=== PATIENT | female | born 1980 | race Caucasian/White ===

== ENCOUNTER 2016-06-04 11:36 | Emergency (ER) | payer MEDICAID, OTHER ==
[2016-06-04] MEDS ORDERED: KETOROLAC 60 MG/2 ML VIAL IM STA (14:22)
[2016-06-04] MEDS ORDERED: KETOROLAC 30 MG/ML VIAL ONE (14:31)
== END 2016-06-04 14:47 | disposition home or self-care (01) ==
DX: M25.512 Pain in left shoulder (principal); F17.200 Nicotine dependence, unspecified, uncomplicated

== ENCOUNTER 2016-08-04 11:01 | Outpatient (CLI) | payer MEDICAID | END 2016-08-04 11:02 | disposition home or self-care (01) | DX: M50.123 Cervical disc disorder at C6-C7 level with radiculopathy (principal) ==

== ENCOUNTER 2016-08-08 16:33 | Outpatient (CLI) | payer MEDICAID | END 2016-08-08 16:34 | disposition home or self-care (01) | DX: R05 Cough (principal); F17.200 Nicotine dependence, unspecified, uncomplicated; M25.519 Pain in unspecified shoulder ==

== ENCOUNTER 2016-08-23 18:27 | Emergency (ER) | payer MEDICAID ==
[2016-08-23] MEDS ORDERED: HYDROcod/ACET 5/325 Prepack 6 PO STA (20:40)
[2016-08-23] MEDS ORDERED: HYDROcod/ACET 5/325 Prepack 6 PO ONE (20:43)
== END 2016-08-23 21:55 | disposition home or self-care (01) ==
DX: B02.9 Zoster without complications (principal); F17.200 Nicotine dependence, unspecified, uncomplicated

== ENCOUNTER 2016-08-27 11:05 | Outpatient (CLI) | payer MEDICAID | END 2016-08-27 11:06 | disposition home or self-care (01) | DX: S46.812A Strain of other muscles, fascia and tendons at shoulder and upper arm level, left arm, initial encounter (principal) ==

== ENCOUNTER 2018-04-27 14:31 | Outpatient (CLI) | payer MEDICAID ==
--- NOTE | 2018-04-27 16:00 | Ultrasound Report ---
Reason: MENORRHAGIA, ABDOMINAL PAIN, CHRONIC Procedure Date: 04/27/2018 Accession Number: [id number] Procedure: US - Pelvic w/Transvaginal CPT Code: FULL RESULT: EXAM: PELVIC ULTRASOUND EXAM DATE: 04/27/2018 03:46 PM. CLINICAL HISTORY: Menorrhagia, abdominal pain, chronic. COMPARISON: None. TECHNIQUE: Realtime transabdominal pelvic scan performed to identify the uterus and adnexa and as an overview of other pelvic structures, followed by transvaginal scan to provide greater detail of the uterus and adnexa, with static image documentation. FINDINGS: Uterus: 10.0 x 5.5 x 4.4 cm, volume 126 cc. Anteverted position. Normal overall size and echotexture. Masses: None. Endometrium: 6 mm. There is focal distortion of the distal fundal endometrium, image 6 of series 1. Possibly a small submucosal fibroid which is not well seen. Cervix: Unremarkable. Right Ovary: 2.7 x 1.7 x 2.2 cm, volume 5.3 cc. Normal echotexture and blood flow. Left Ovary: 2.7 x 2.9 x 2.5 cm, volume 10.2 cc. Normal echotexture and blood flow. Free Fluid: None. Other: None. IMPRESSION: Question poorly visualized; submucosal fundal fibroid. RADIA
--- NOTE | 2018-04-27 17:54 | Ultrasound Report ---
Reason: MENORRHAGIA, ABDOMINAL PAIN, CHRONIC Procedure Date: 04/27/2018 Accession Number: [id number] / [id number] Procedure: US - Abdomen Complete CPT Code: FULL RESULT: EXAM: ABDOMEN ULTRASOUND. EXAM DATE: 04/27/2018 02:52 PM. CLINICAL HISTORY: Generalized abdominal pain. COMPARISON: None. TECHNIQUE: Real-time scanning was performed with static images obtained. FINDINGS: Liver: The liver is diffusely echogenic in appearance suggesting fibrofatty infiltration. No suspicious lesions or masses are identified. The liver measures 16.1 cm. Main portal vein flow: Hepatopetal. Gallbladder: Surgically absent. Biliary System: Common bile duct measures 3 mm. No intrahepatic or extrahepatic ductal dilatation. Pancreas: Visualized portion is unremarkable. Kidneys: Right: 11.1 cm longitudinally. Normal. No contour-deforming mass, stones, or hydronephrosis. Left: 11.4 cm longitudinally. Normal. No contour-deforming mass, stones, or hydronephrosis. Spleen: 10.3 cm. Normal in size and echotexture. Aorta and Inferior Vena Cava: Unremarkable. Other: None. IMPRESSION: Fatty change of the liver, otherwise normal exam status post cholecystectomy. RADIA
== END 2018-04-27 14:32 | disposition home or self-care (01) ==
LOC: DI 14:31
PROVIDERS: ATTEND Nurse Practitioner
DX: N92.0 Excessive and frequent menstruation with regular cycle (principal); R10.9 Unspecified abdominal pain; G89.29 Other chronic pain; D25.0 Submucous leiomyoma of uterus; K76.0 Fatty (change of) liver, not elsewhere classified; Z90.49 Acquired absence of other specified parts of digestive tract
CPT/HCPCS: 76700; 76830; 76856

== ENCOUNTER 2018-05-11 12:58 | Outpatient (CLI) | payer MEDICAID ==
[2018-05-11 19:35] LABS: BASOPHILS % (AUTO) 0.4 %; EOSINOPHILS % (AUTO) 0.4 %; HGB - HEMOGLOBIN 12.3 g/dL (12.0-16.0); LYMPHOCYTES # (AUTO) 1.8 10^3/uL (1.5-3.5); LYMPHOCYTES % (AUTO) 24.9 %; MEAN CORPUSCULAR HEMOGLOBIN 26.5 pg (27.0-31.0); MEAN CORPUSCULAR HGB CONC 31.7 g/dL (32.0-36.0); MEAN CORPUSCULAR VOLUME 83.6 fL (81.0-99.0); MEAN PLATELET VOLUME 8.6 fL (7.9-10.8); MONOCYTES # (AUTO) 0.5 10^3/uL (0.0-1.0); MONOCYTES % (AUTO) 6.5 %; NEUTROPHILS # (AUTO) 4.9 10^3/uL (1.5-6.6); NEUTROPHILS % (AUTO) 67.8 %; PLT - PLATELET COUNT 272 10^3/uL (130-450); RED BLOOD COUNT 4.64 10^6/uL (4.20-5.40); RED CELL DISTRIBUTION WIDTH 17.1 % (12.0-15.0); WHITE BLOOD COUNT 7.2 x10^3/uL (4.8-10.8)
[2018-05-11 19:43] LABS: ALBUMIN 4.1 g/dL (3.2-5.5); ALBUMIN/GLOBULIN RATIO 1.1 (1.0-2.2); BILIRUBIN,TOTAL 0.3 mg/dL (0.2-1.0); CALCIUM 8.7 mg/dL (8.5-10.3); CREATININE 0.7 mg/dL (0.4-1.0); TOTAL PROTEIN 7.7 g/dL (6.7-8.2)
[2018-05-11 19:58] LABS: THYROID STIMULATING HORMONE 0.95 uIU/mL (0.34-5.60)
[2018-05-11 20:09] LABS: FOLATE 7.27 ng/mL (5.90 - >24.8)
== END 2018-05-11 23:59 | disposition home or self-care (01) ==
LOC: LAB.N 12:58
PROVIDERS: ATTEND Nurse Practitioner
DX: R53.83 Other fatigue (principal); E55.9 Vitamin D deficiency, unspecified; N92.0 Excessive and frequent menstruation with regular cycle
CPT/HCPCS: 36415; 80053; 82306; 82607; 82746; 84443; 85025

== ENCOUNTER 2018-06-04 18:32 | Emergency (ER) | payer MEDICAID ==
[2018-06-04 19:17] LABS: BASOPHILS % (AUTO) 0.4 %; EOSINOPHILS % (AUTO) 0.4 %; HGB - HEMOGLOBIN 12.5 g/dL (12.0-16.0); LYMPHOCYTES # (AUTO) 1.6 10^3/uL (1.5-3.5); LYMPHOCYTES % (AUTO) 24.1 %; MEAN CORPUSCULAR HEMOGLOBIN 26.1 pg (27.0-31.0); MEAN CORPUSCULAR HGB CONC 31.9 g/dL (32.0-36.0); MEAN CORPUSCULAR VOLUME 81.6 fL (81.0-99.0); MEAN PLATELET VOLUME 7.6 fL (7.9-10.8); MONOCYTES # (AUTO) 0.4 10^3/uL (0.0-1.0); NEUTROPHILS # (AUTO) 4.6 10^3/uL (1.5-6.6); NEUTROPHILS % (AUTO) 69.1 %; PLT - PLATELET COUNT 259 10^3/uL (130-450); RED CELL DISTRIBUTION WIDTH 16.5 % (12.0-15.0); WHITE BLOOD COUNT 6.7 x10^3/uL (4.8-10.8)
[2018-06-04 19:31] LABS: ACETAMINOPHEN < 10 ug/mL (10-30); ALBUMIN/GLOBULIN RATIO 1.1 (1.0-2.2); ALKALINE PHOSPHATASE 87 IU/L (42-121); ALT ALANINE AMINOTRANSFERASE 33 IU/L (10-60); AST ASPARTATE AMINOTRANSFERASE 31 IU/L (10-42); BILIRUBIN,TOTAL 0.2 mg/dL (0.2-1.0); BUN - BLOOD UREA NITROGEN 9 mg/dL (6-20); CALCIUM 8.8 mg/dL (8.5-10.3); CARBON DIOXIDE - CO2 16 mmol/L (21-32); CHLORIDE 108 mmol/L (101-111); CREATININE 0.6 mg/dL (0.4-1.0); GFR - MDRD 111 (>89); GLUCOSE 120 mg/dL (70-100); LIPASE 28 U/L (22-51); SALICYLATE < 6.0 mg/dL; SODIUM 138 mmol/L (135-145); TOTAL PROTEIN 7.7 g/dL (6.7-8.2)
[2018-06-04] MEDS ORDERED: SODIUM CHLORIDE 0.9% 1,000 ML IV ONE (19:39)
--- NOTE | 2018-06-04 19:43 | ED Physician Documentation ---
PD HPI MHE - Stated complaint Stated Complaint: POSS MED OD - Chief complaint Chief Complaint: MHE - History obtained from History obtained from: Patient, Family - History of Present Illness Primary symptom: Suicidal ideation (at 1800 toook about 25 x 150mg seroquel in a fleeting SI attempt. Also with some wine. No other drugs. Denies current SI. 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: section, Tubal ligation, Breast implants, Other - Present Medications Home Medications: Ambulatory Orders Medication Instructions Recorded Confirmed Citalopram [CeleXA] 40 mg PO DAILY 08/23/16 08/23/16 Hydrocodone/Acetaminophen 1 - 2 each PO Q6H PRN #14 tablet 08/23/16 [Hydrocodon-Acetaminophen 5-325] QUEtiapine [SEROquel] 100 mg PO QPM 08/23/16 08/23/16 Valacyclovir HCl [Valtrex] 1,000 mg PO TID 7 Days tablet 08/23/16 Valacyclovir HCl [Valtrex] 1,000 mg PO TID 7 Days tablet 08/23/16 - Allergies Allergies/Adverse Reactions: Allergies Allergy/AdvReac Type Severity Reaction Status Date / Time hydrocodone bitartrate * Allergy Itching Verified 06/04/18 18:42 [From Vicodin] - Social History Does the pt smoke?: Yes Smoking Status: Current every day smoker Does the pt drink ETOH?: No Does the pt have substance abuse?: No - Family History Family history: reports: Non contributory - Immunizations Immunizations are current?: Yes - POLST Patient has POLST: No PD ED PE NORMAL - Vitals Vital signs reviewed: Yes (tachycardic) - General General: Alert and oriented X 3, No acute distress - HEENT HEENT: PERRL, EOMI - Neck Neck: Supple, no meningeal sign, No bony TTP - Cardiac Cardiac: RRR, No murmur - Respiratory Respiratory: No respiratory distress, Clear bilaterally - Abdomen Abdomen: Non tender - Back Back: No CVA TTP, No spinal TTP - Derm Derm: Normal color, Warm and dry - Neuro Neuro: Alert and oriented X 3, Normal speech Results - Vitals Vitals: Vital Signs - 24 hr 06/05/18 06/06/18 06/06/18 15:27 06:35 12:27 Temperature 36.9 C 36.5 C 36.8 C Heart Rate 116 H 86 90 Respiratory 16 18 18 Rate Blood Pressure 115/80 105/60 120/80 O2 Saturation 96 97 99 Oxygen O2 Source Room air - EKG (time done) 1854 Rate: Rate (enter#) (130) Rhythm: Sinus tachycardia [place]: Normal Intervals: Normal [place]. No: Prolonged QT QRS: Normal Ischemia: Normal ST segments Computer interpretation: Agree with computer 2220 Rate: Rate (enter#) (125) Rhythm: Sinus tachycardia [place]: Normal Intervals: Normal [place]. No: Prolonged QT QRS: Normal Ischemia: Non specific changes Computer interpretation: Agree with computer - Labs Labs: Laboratory Tests 06/04/18 06/04/18 06/04/18 19:10 19:10 21:11 WBC 6.7 RBC 4.80 Hgb 12.5 Hct 39.1 MCV 81.6 MCH 26.1 L MCHC 31.9 L RDW 16.5 H Plt Count 259 MPV 7.6 L Neut # (Auto) 4.6 Lymph # (Auto) 1.6 [place] # (Auto) 0.4 Eos # (Auto) 0.0 Baso # (Auto) 0.0 Absolute Nucleated RBC 0.00 Nucleated RBC % 0.0 Sodium 138 Potassium 3.6 Chloride 108 Carbon Dioxide 16 L Anion Gap 14.0 H BUN 9 Creatinine 0.6 Estimated GFR (MDRD) 111 Glucose 120 H Calcium 8.8 Total Bilirubin 0.2 AST 31 ALT 33 Alkaline Phosphatase 87 Total Protein 7.7 Albumin 4.0 Globulin 3.7 Albumin/Globulin Ratio 1.1 Lipase 28 Urine Color YELLOW Urine Clarity CLEAR Urine pH 5.5 Ur Specific [place] >=1.030 H Urine Protein NEGATIVE Urine Glucose (UA) NEGATIVE Urine Ketones 15 H Urine Occult Blood NEGATIVE Urine Nitrite NEGATIVE Urine Bilirubin NEGATIVE Urine Urobilinogen 0.2 (NORMAL) Ur Leukocyte Esterase NEGATIVE Ur Microscopic Review NOT INDICATED Urine Culture Comments NOT INDICATED Urine HCG, Qual Salicylates < 6.0 Urine Opiates Screen Ur Oxycodone Screen Urine Methadone Screen Ur Propoxyphene Screen Acetaminophen < 10 L Ur Barbiturates Screen Ur Tricyclics Screen Ur Phencyclidine Scrn Ur Amphetamine Screen U Methamphetamines Scrn U Benzodiazepines Scrn Urine Cocaine Screen U Cannabinoids Screen Ethyl Alcohol 128.8 06/04/18 06/04/18 06/05/18 21:11 21:11 04:21 WBC RBC Hgb Hct MCV MCH MCHC RDW Plt Count MPV Neut # (Auto) Lymph # (Auto) [place] # (Auto) Eos # (Auto) Baso # (Auto) Absolute Nucleated RBC Nucleated RBC % Sodium Potassium Chloride Carbon Dioxide Anion Gap BUN Creatinine Estimated GFR (MDRD) Glucose Calcium Total Bilirubin AST ALT Alkaline Phosphatase Total Protein Albumin Globulin Albumin/Globulin Ratio Lipase Urine Color Urine Clarity Urine pH Ur Specific [place] >=1.030 H Urine Protein Urine Glucose (UA) Urine Ketones Urine Occult Blood Urine Nitrite Urine Bilirubin Urine Urobilinogen Ur Leukocyte Esterase Ur Microscopic Review Urine Culture Comments Urine HCG, Qual NEGATIVE Salicylates Urine Opiates Screen NEGATIVE Ur Oxycodone Screen NEGATIVE Urine Methadone Screen NEGATIVE Ur Propoxyphene Screen NEGATIVE Acetaminophen Ur Barbiturates Screen NEGATIVE Ur Tricyclics Screen POSITIVE H Ur Phencyclidine Scrn NEGATIVE Ur Amphetamine Screen NEGATIVE U Methamphetamines Scrn NEGATIVE U Benzodiazepines Scrn NEGATIVE Urine Cocaine Screen NEGATIVE U Cannabinoids Screen POSITIVE H Ethyl Alcohol < 5.0 06/06/18 07:21 WBC RBC Hgb Hct MCV MCH MCHC RDW Plt Count MPV Neut # (Auto) Lymph # (Auto) [place] # (Auto) Eos # (Auto) Baso # (Auto) Absolute Nucleated RBC Nucleated RBC % Sodium 136 Potassium 3.7 Chloride 106 Carbon Dioxide 22 Anion Gap 8.0 BUN 12 Creatinine 0.8 Estimated GFR (MDRD) 80 L Glucose 108 H Calcium 8.8 Total Bilirubin AST ALT Alkaline Phosphatase Total Protein Albumin Globulin Albumin/Globulin Ratio Lipase Urine Color Urine Clarity Urine pH Ur Specific [place] Urine Protein Urine Glucose (UA) Urine Ketones Urine Occult Blood Urine Nitrite Urine Bilirubin Urine Urobilinogen Ur Leukocyte Esterase Ur Microscopic Review Urine Culture Comments Urine HCG, Qual Salicylates Urine Opiates Screen Ur Oxycodone Screen Urine Methadone Screen Ur Propoxyphene Screen Acetaminophen Ur Barbiturates Screen Ur Tricyclics Screen Ur Phencyclidine Scrn Ur Amphetamine Screen U Methamphetamines Scrn U Benzodiazepines Scrn Urine Cocaine Screen U Cannabinoids Screen Ethyl Alcohol PD MEDICAL DECISION MAKING - ED course ED course: 38-year-old woman with intentional Seroquel overdose that could be significant. Poison control was contacted and they recommended cardiac monitoring for QT and an observation period of at least 8 hours before medical clearance. Patient says she is no longer suicidal but the Sister feels that she is still actively suicidal. She did become somewhat agitated overnight and required divided doses of lorazepam. Next next morning she was somnolent but eventually came around to pretty normal mental status and was interviewed by the social problems specialist. Given the persistent concern for active suicidal ideation and the significant attempt they deferred to the P because they felt that she would not be a good charla voluntary. The P detained her to [facility] evaluation and treatment facility. She is medically stable for psychiatric transfer and evaluation. However after discussion with the clinical staff at that facility the P told me that they felt she was still too acute and needed another night of metabolization of her medications before they could accept her and therefore the P had to do a "walk away." On the morning of June 06 she reevaluated the patient and she was accepted at [facility] ENT under the care of YVROSE Vivas and hussain were addended. Departure - Departure Disposition: 65 Psych Hosp/Unit DC/Xfer Clinical Impression: Suicidal ideation Alcoholic intoxication Qualifiers: Complication of substance-induced condition: uncomplicated Qualified Code(s): F10.920 - Alcohol use, unspecified with intoxication, uncomplicated Drug overdose Qualifiers: Encounter type: initial encounter Injury intent: intentional self-harm Qualified Code(s): T50.902A - Poisoning by unspecified drugs, medicaments and biological substances, intentional self-harm, initial encounter Condition: Stable
[2018-06-04] MEDS ORDERED: LORazepam 2 MG/ML VIAL IVP STA ×3 (21:06→22:26)
[2018-06-04 21:21] LABS: MUDS CUTOFF CONCENTRATIONS CUTOFF CONC BELOW:
[2018-06-04 21:25] LABS: BILIRUBIN,URINE NEGATIVE (NEGATIVE); GLUCOSE, URINE (UA) NEGATIVE (NEGATIVE); KETONES,URINE (UA) 15 mg/dL (NEGATIVE); LEUKOCYTE ESTERASE, URINE NEGATIVE (NEGATIVE); NITRITE,URINE NEGATIVE (NEGATIVE); OCCULT BLOOD,URINE NEGATIVE (NEGATIVE); PH,URINE 5.5 PH (5.0-7.5); PROTEIN,URINE NEGATIVE (NEGATIVE); UROBILINOGEN,URINE 0.2 (NORMAL) E.U./dL (NORMAL)
[2018-06-04 21:27] LABS: CLARITY,URINE CLEAR (CLEAR)
[2018-06-04 21:34] LABS: AMPHETAMINE SCREEN,URINE NEGATIVE (NEGATIVE); BENZODIAZEPINES SCREEN, URINE NEGATIVE (NEGATIVE); COCAINE SCREEN URINE NEGATIVE (NEGATIVE); METHADONE SCREEN, URINE NEGATIVE (NEGATIVE); METHAMPHETAMINES SCREEN, URINE NEGATIVE (NEGATIVE); OPIATE SCREEN, URINE NEGATIVE (NEGATIVE); OXYCODONE SCREEN, URINE NEGATIVE (NEGATIVE); PROPOXYPHENE SCREEN, URINE NEGATIVE (NEGATIVE); TRICYCLIC ANTIDEPRESSANT,URINE POSITIVE (NEGATIVE)
[2018-06-04 21:40] LABS: HCG UR QUAL NEGATIVE
[2018-06-04] MEDS ORDERED: LACTATED RINGERS 1,000 ML IV STA (22:26)
[2018-06-05] MEDS ORDERED: SODIUM CHLORIDE 0.9% 1,000 ML IV ONE (05:08)
--- NOTE | 2018-06-05 05:10 | ED Physician Documentation ---
ED Addendum - Addendum Addendum: 06/05/18 05:08 The patient is evaluated for initiation of telepsych and at 0500 her blood alcohol is nil but she remains "groggy" with slurred speech and short attention. Her resting pulse is 120 and she is given additional fluid and time before telepsych is started.
[2018-06-06 07:35] LABS: CALCIUM 8.8 mg/dL (8.5-10.3); CREATININE 0.8 mg/dL (0.4-1.0)
--- NOTE | 2018-06-06 07:38 | ED Physician Documentation ---
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, Breast implants, Other - Present Medications Home Medications: Ambulatory Orders Medication Instructions Recorded Confirmed Citalopram [CeleXA] 40 mg PO DAILY 08/23/16 08/23/16 QUEtiapine [SEROquel] 100 mg PO QPM 08/23/16 08/23/16 - Allergies Allergies/Adverse Reactions: Allergies Allergy/AdvReac Type Severity Reaction Status Date / Time hydrocodone bitartrate * Allergy Itching Verified 06/04/18 18:42 [From Vicodin] - Social History Does the pt smoke?: Yes Smoking Status: Current every day smoker Does the pt drink ETOH?: No Does the pt have substance abuse?: No - Immunizations Immunizations are current?: Yes - POLST Patient has POLST: No Results - Vitals Vitals: Vital Signs - 24 hr 06/06/18 06/06/18 06:35 12:27 Temperature 36.5 C 36.8 C Heart Rate 86 90 Respiratory 18 18 Rate Blood Pressure 105/60 120/80 O2 Saturation 97 99 Oxygen O2 Source Room air - EKG (time done) 1026 Rate: Rate (enter#) (82) Rhythm: NSR Intervals: No: Wide QRS (borderline RBBB pattern) Ischemia: Non specific changes (inv T III V3 V4 and flat elsewhere borderline QRS at 120, nl QT) - Labs Labs: Laboratory Tests 06/04/18 06/04/18 06/04/18 19:10 19:10 21:11 WBC 6.7 RBC 4.80 Hgb 12.5 Hct 39.1 MCV 81.6 MCH 26.1 L MCHC 31.9 L RDW 16.5 H Plt Count 259 MPV 7.6 L Neut # (Auto) 4.6 Lymph # (Auto) 1.6 [place] # (Auto) 0.4 Eos # (Auto) 0.0 Baso # (Auto) 0.0 Absolute Nucleated RBC 0.00 Nucleated RBC % 0.0 Sodium 138 Potassium 3.6 Chloride 108 Carbon Dioxide 16 L Anion Gap 14.0 H BUN 9 Creatinine 0.6 Estimated GFR (MDRD) 111 Glucose 120 H Calcium 8.8 Total Bilirubin 0.2 AST 31 ALT 33 Alkaline Phosphatase 87 Total Protein 7.7 Albumin 4.0 Globulin 3.7 Albumin/Globulin Ratio 1.1 Lipase 28 Urine Color YELLOW Urine Clarity CLEAR Urine pH 5.5 Ur Specific [place] >=1.030 H Urine Protein NEGATIVE Urine Glucose (UA) NEGATIVE Urine Ketones 15 H Urine Occult Blood NEGATIVE Urine Nitrite NEGATIVE Urine Bilirubin NEGATIVE Urine Urobilinogen 0.2 (NORMAL) Ur Leukocyte Esterase NEGATIVE Ur Microscopic Review NOT INDICATED Urine Culture Comments NOT INDICATED Urine HCG, Qual Salicylates < 6.0 Urine Opiates Screen Ur Oxycodone Screen Urine Methadone Screen Ur Propoxyphene Screen Acetaminophen < 10 L Ur Barbiturates Screen Ur Tricyclics Screen Ur Phencyclidine Scrn Ur Amphetamine Screen U Methamphetamines Scrn U Benzodiazepines Scrn Urine Cocaine Screen U Cannabinoids Screen Ethyl Alcohol 128.8 06/04/18 06/04/18 06/05/18 21:11 21:11 04:21 WBC RBC Hgb Hct MCV MCH MCHC RDW Plt Count MPV Neut # (Auto) Lymph # (Auto) [place] # (Auto) Eos # (Auto) Baso # (Auto) Absolute Nucleated RBC Nucleated RBC % Sodium Potassium Chloride Carbon Dioxide Anion Gap BUN Creatinine Estimated GFR (MDRD) Glucose Calcium Total Bilirubin AST ALT Alkaline Phosphatase Total Protein Albumin Globulin Albumin/Globulin Ratio Lipase Urine Color Urine Clarity Urine pH Ur Specific [place] >=1.030 H Urine Protein Urine Glucose (UA) Urine Ketones Urine Occult Blood Urine Nitrite Urine Bilirubin Urine Urobilinogen Ur Leukocyte Esterase Ur Microscopic Review Urine Culture Comments Urine HCG, Qual NEGATIVE Salicylates Urine Opiates Screen NEGATIVE Ur Oxycodone Screen NEGATIVE Urine Methadone Screen NEGATIVE Ur Propoxyphene Screen NEGATIVE Acetaminophen Ur Barbiturates Screen NEGATIVE Ur Tricyclics Screen POSITIVE H Ur Phencyclidine Scrn NEGATIVE Ur Amphetamine Screen NEGATIVE U Methamphetamines Scrn NEGATIVE U Benzodiazepines Scrn NEGATIVE Urine Cocaine Screen NEGATIVE U Cannabinoids Screen POSITIVE H Ethyl Alcohol < 5.0 06/06/18 07:21 WBC RBC Hgb Hct MCV MCH MCHC RDW Plt Count MPV Neut # (Auto) Lymph # (Auto) [place] # (Auto) Eos # (Auto) Baso # (Auto) Absolute Nucleated RBC Nucleated RBC % Sodium 136 Potassium 3.7 Chloride 106 Carbon Dioxide 22 Anion Gap 8.0 BUN 12 Creatinine 0.8 Estimated GFR (MDRD) 80 L Glucose 108 H Calcium 8.8 Total Bilirubin AST ALT Alkaline Phosphatase Total Protein Albumin Globulin Albumin/Globulin Ratio Lipase Urine Color Urine Clarity Urine pH Ur Specific [place] Urine Protein Urine Glucose (UA) Urine Ketones Urine Occult Blood Urine Nitrite Urine Bilirubin Urine Urobilinogen Ur Leukocyte Esterase Ur Microscopic Review Urine Culture Comments Urine HCG, Qual Salicylates Urine Opiates Screen Ur Oxycodone Screen Urine Methadone Screen Ur Propoxyphene Screen Acetaminophen Ur Barbiturates Screen Ur Tricyclics Screen Ur Phencyclidine Scrn Ur Amphetamine Screen U Methamphetamines Scrn U Benzodiazepines Scrn Urine Cocaine Screen U Cannabinoids Screen Ethyl Alcohol PD MEDICAL DECISION MAKING - ED course ED course: assumed care 7 AM per turn over from box brander: pt to ED some 36 hr ago after OD on 25 seroquel she was monitored fopr 24 hr and then medically cleared pt was felt to be invol so DCR was dispatched but no bed could be secured so DCR "did a walk away" now pt is awaiting SW and/or DCR to continue efforts to place her tachycardia has cleared her labs were notable for an anion gap acidosis - asa level was neg - rechecked BMP this AM and that had resolved - and + TCA which is likely false pos cross rxn from seroquel I went to see pt she is awake and alert states she did take seroquel to try and kill herself denies other meds or drugs did drink when i ask if she is still suicidal she shrugs and does not answer she req to go out and smoke VS noted awake alert RRR CTAB suicidal rx nicotone patch DCR walked away but pt is not safe to dc as she appears to still be actively suicidal spoke to BALDO Faustin and she will discuss with DCR how to proceed with ongoing attempts to place pt SW states possible placement to telecare E&T but need another EKG as 1st was abnbed was found so DCR re-dispatched to detain pt she was transferred for mental health care remained stable Departure - Departure Disposition: 65 Psych Hosp/Unit DC/Xfer Clinical Impression: Suicidal ideation Alcoholic intoxication Qualifiers: Complication of substance-induced condition: uncomplicated Qualified Code(s): F10.920 - Alcohol use, unspecified with intoxication, uncomplicated Drug overdose Qualifiers: Encounter type: initial encounter Injury intent: intentional self-harm Qualified Code(s): T50.902A - Poisoning by unspecified drugs, medicaments and biological substances, intentional self-harm, initial encounter Condition: Stable
[2018-06-06] MEDS ORDERED: NICOTINE 7 MG PATCH TOP SCH (09:00)
[2018-06-06] MEDS ORDERED: LORazepam 0.5 MG TABLET PO STA ×3 (09:02→15:57)
[2018-06-06 19:34] VITALS: BP 132/93
== END 2018-06-06 19:40 ==
LOC: ED 18:32
DX: T43.592A Poisoning by other antipsychotics and neuroleptics, intentional self-harm, initial encounter (principal); F10.920 Alcohol use, unspecified with intoxication, uncomplicated; R45.851 Suicidal ideations; F17.200 Nicotine dependence, unspecified, uncomplicated
CPT/HCPCS: 36415; 80048; 80053; 80306; 80307; 80320; 80329; 81003; 81025; 83690; 85025; 93005; 96361; 96374; 96376; 99284; 99285; A9270; J2060; J7120; 81001; 87086

== ENCOUNTER 2018-06-06 19:42 | Outpatient (CLI) | payer MEDICAID | END 2018-06-06 19:43 | LOC: EMS 19:42 | PROVIDERS: ATTEND Surgery | DX: R45.851 Suicidal ideations (principal) | CPT/HCPCS: A0425; A0428; A0999 ==

== ENCOUNTER 2018-07-02 11:48 | Outpatient (CLI) | payer MEDICAID ==
--- NOTE | 2018-07-04 00:19 | Ultrasound Report ---
Reason: PELVIC PAIN,CHRONIC,MENORRHAGIA Procedure Date: 07/02/2018 Accession Number: [id number] / [id number] Procedure: US - Pelvic w/Transvaginal CPT Code: FULL RESULT: EXAM: PELVIC ULTRASOUND EXAM DATE: 07/02/2018 01:07 PM. CLINICAL HISTORY: Pelvic pain, chronic, menorrhagia. COMPARISON: PELVIC W/TRANSVAGINAL 04/27/2018 3:08 PM. TECHNIQUE: Realtime transabdominal pelvic scan performed to identify the uterus and adnexa and as an overview of other pelvic structures, followed by transvaginal scan to provide greater detail of the uterus and adnexa, with static image documentation. FINDINGS: Uterus: 11 x 4.2 x 6.9 cm, volume 169 cc. Retroverted position. Normal overall size and echotexture. Masses: None. Endometrium: 9 mm. Normal. Cervix: Unremarkable. Right Ovary: 3 x 2 x 2 cm, volume 7.2 cc. Normal echotexture and blood flow. Left Ovary: Obscured by bowel gas. Free Fluid: None. Other: None. IMPRESSION: 1. Nonvisualization of left ovary due to bowel gas artifact. 2. Normal uterus and right ovary. RADIA
== END 2018-07-02 11:49 | disposition home or self-care (01) ==
LOC: DI 11:48
PROVIDERS: ATTEND Nurse Practitioner Obstetrics & Gynecology
DX: R10.2 Pelvic and perineal pain (principal); N92.0 Excessive and frequent menstruation with regular cycle
CPT/HCPCS: 76830; 76856

== ENCOUNTER 2018-07-27 07:27 | Outpatient (CLI) | payer MEDICAID ==
[2018-07-27 13:37] LABS: BASOPHILS % (AUTO) 0.3 %; EOSINOPHILS % (AUTO) 0.9 %; HGB - HEMOGLOBIN 11.6 g/dL (12.0-16.0); LYMPHOCYTES # (AUTO) 1.6 10^3/uL (1.5-3.5); LYMPHOCYTES % (AUTO) 29.7 %; MEAN CORPUSCULAR HEMOGLOBIN 24.8 pg (27.0-31.0); MEAN CORPUSCULAR HGB CONC 32.9 g/dL (32.0-36.0); MEAN CORPUSCULAR VOLUME 75.5 fL (81.0-99.0); MEAN PLATELET VOLUME 8.6 fL (7.9-10.8); MONOCYTES # (AUTO) 0.4 10^3/uL (0.0-1.0); MONOCYTES % (AUTO) 7.6 %; NEUTROPHILS # (AUTO) 3.2 10^3/uL (1.5-6.6); NEUTROPHILS % (AUTO) 61.5 %; PLT - PLATELET COUNT 348 10^3/uL (130-450); RED BLOOD COUNT 4.68 10^6/uL (4.20-5.40); RED CELL DISTRIBUTION WIDTH 16.6 % (12.0-15.0); WHITE BLOOD COUNT 5.3 x10^3/uL (4.8-10.8)
[2018-07-27 13:48] LABS: HB2 TOTAL 12.3 g/dL; HEMOGLOBIN A1C 0.47 g/dL; HEMOGLOBIN A1C % 5.6 % (4.6-6.2)
[2018-07-27 13:49] LABS: ALBUMIN 3.8 g/dL (3.2-5.5); ALBUMIN/GLOBULIN RATIO 1.2 (1.0-2.2); BILIRUBIN,TOTAL 0.4 mg/dL (0.2-1.0); CALCIUM 8.6 mg/dL (8.5-10.3); CREATININE 0.7 mg/dL (0.4-1.0); TOTAL PROTEIN 7.1 g/dL (6.7-8.2)
[2018-07-27 13:50] LABS: T4 (THYROXINE) 5.79 ug/dL (6.09-12.23)
[2018-07-27 13:53] LABS: THYROID STIMULATING HORMONE 1.43 uIU/mL (0.34-5.60)
[2018-07-27 13:58] LABS: FERRITIN 3.9 ng/mL (11.0-306.8)
== END 2018-07-27 23:59 | disposition home or self-care (01) ==
LOC: LAB.N 07:27
PROVIDERS: ATTEND Obstetrics & Gynecology
DX: N92.0 Excessive and frequent menstruation with regular cycle (principal)
CPT/HCPCS: 36415; 80053; 82728; 82947; 83036; 83540; 84436; 84443; 84466; 85025

== ENCOUNTER 2018-09-07 07:40 | Inpatient (IN) | payer MEDICAID ==
[~2018-09-07 07:40] MED LIST: GABAPENTIN 400 MG CAPSULE ONE; ceFAZolin 2 GM/50 ML 2 GM/50 ML BAG IV ONE
--- NOTE | 2018-09-07 08:00 | ANESTHESIA ---
Pre-Anesthesia VS, & Labs - Diagnosis menorrhagia - Procedure LAVH, w/bilat salpingectomy Vital Signs: Temp Pulse Resp BP Pulse Ox 36.5 C 92 18 101/72 99 09/07/18 07:45 09/07/18 07:45 09/07/18 07:45 09/07/18 07:45 09/07/18 07:45 Height 5 ft 5 in Weight (kg) 92.6 kg Body Mass Index 34.9 - NPO >8 hours - Is Patient ?: No - Lab Results Lab results reviewed: Yes Home Medications and Allergies Home Medications: Ambulatory Orders Oxcarbazepine [Trileptal] 600 mg PO BID 08/29/18 buPROPion [Wellbutrin Sr] 150 mg PO DAILY 08/29/18 Citalopram [CeleXA] 20 mg PO DAILY 08/23/16 QUEtiapine [SEROquel] 250 mg PO QPM 08/23/16 Oxcarbazepine [Trileptal] 600 mg PO BID 08/29/18 buPROPion [Wellbutrin Sr] 150 mg PO DAILY 08/29/18 Allergies/Adverse Reactions: Allergies Allergy/AdvReac Type Severity Reaction Status Date / Time hydrocodone bitartrate * Allergy Itching Verified 08/29/18 13:55 [From Vicodin] Anes History & Medical History - Anesthetic History Anesthesia Complications: reports: No previous complications Family history of Anesthesia Complications: Denies Family history of Malignant Hyperthermia: Denies - Medical History Cardiovascular: reports: None Pulmonary: reports: None Gastrointestinal: reports: None Urinary: reports: None Musculoskeletal: reports: Chronic back pain Endocrine/Autoimmune: reports: None Blood Disorders: reports: None Skin: reports: None Smoking Status: Current every day smoker Psychosocial: reports: Anxiety - Surgical History General: Cholecystectomy Gynecologic: section, Tubal ligation, Breast implants, Other Exam General: Alert, Oriented x3, Cooperative Dental: WNL Mouth Openin Fingerbreadth Neck Mobility: Normal Mallampati classification: II Thyromental Distance: 4-6 cm Respiratory: Lungs clear, Normal breath sounds Cardiovascular: Regular rate Neurological: Normal speech Mental/Cognitive Status: Alert/Oriented X3, Normal for patient Cognitive Status: Within normal limits Plan Anesthesia Type: General Consent for Procedure(s) Verified and Reviewed: Yes Code Status: Attempt Resuscitation ASA classification: 2-Mild systemic disease Is this case an emergency?: No
[2018-09-07] MEDS ORDERED: LACTATED RINGERS 1,000 ML IV ONE ×3 (08:05→13:07)
[2018-09-07] MEDS ORDERED: BUPIVACAINE 0.5%-EPI 1:200000 PF 30 ML VIAL ONE ×2 (09:15→13:56)
[2018-09-07] MEDS ORDERED: BUPIVACAINE 0.5%-EPI 1:200000 PF 30 ML VIAL SUBQ ONE ×4 (10:29→13:45)
[2018-09-07] MEDS ORDERED: KETOROLAC 30 MG/ML VIAL IVP ONE (10:30)
[2018-09-07] MEDS ORDERED: SODIUM CHLORIDE 0.9% 10 ML VIAL IV ONE (10:30)
[2018-09-07] MEDS ORDERED: ACETAMINOPHEN 1,000 MG/100 ML 100 ML IV ONE (10:30)
[2018-09-07] MEDS ORDERED: GLYCOPYRROLATE 1 MG/5 ML VIAL IVP ONE (10:30)
[2018-09-07] MEDS ORDERED: MIDAZOLAM 2 MG/2 ML VIAL IVP ONE (10:30)
[2018-09-07] MEDS ORDERED: NEOSTIGMINE 1 MG/1 ML 10 ML MDV IVP ONE (10:30)
[2018-09-07] MEDS ORDERED: DEXAMETHASONE 4 MG/ML VIAL IVP ONE (10:30)
[2018-09-07] MEDS ORDERED: HYDROmorphone 1 MG/ML CARPUJECT IVP ONE (10:30)
[2018-09-07] MEDS ORDERED: LIDOCAINE-MPF 2% 5 ML VIAL IM ONE (10:30)
[2018-09-07] MEDS ORDERED: fentaNYL 100 MCG/2 ML VIAL IVP ONE (10:30)
[2018-09-07] MEDS ORDERED: PROPOFOL 200 MG/20 ML VIAL IVP ONE (10:30)
[2018-09-07] MEDS ORDERED: ROCURONIUM 50 MG/5 ML VIAL IVP ONE ×2 (10:30→12:41)
[2018-09-07] MEDS ORDERED: ONDANSETRON 4 MG/2 ML VIAL IVP ONE (10:30)
[2018-09-07] MEDS ORDERED: HYDROmorphone 0.5 MG/0.5 ML SYRINGE ONE ×3 (14:17→14:36)
[2018-09-07] MEDS: LORazepam 2 MG/ML VIAL ONE ×2 (14:18→14:28)
[2018-09-07] MEDS ORDERED: diphenhydrAMINE INJ 50 MG/ML VIAL IVP PRN (14:22)
[2018-09-07] MEDS ORDERED: SODIUM CHLORIDE FLUSH 0.9% 10 ML SYRINGE IVP PRN (14:22)
--- NOTE | 2018-09-07 14:22 | OPERATIVE REPORT ---
Operative Report - General Procedure Date: 09/07/18 Planned Procedure: LAVH, bilat salpingectomy Pre-Op Diagnosis: CPP, AUB Procedure Performed: LSC lysis of adhesions and left salpingectomy Open supracervical hysterectomy and right salpingectomy Post Op Diagnosis: same and adhesive disease - Procedure Note Primary Surgeon: Yesenia Secondary Surgeon: Hardeep nelson Anesthesia Technique: General ET tube Pathology: uterus, bilat fallopian tubes IV Fluids (mL): 1,900 Estimated Blood Loss (mL): 200 Urine Output (mL): 250 Findings: omental adhesions bladder adhesions Complications: none
[2018-09-07] MEDS: ACETAMINOPHEN 500 MG TABLET PO SCH ×2 (15:00→22:38)
[2018-09-07] MEDS: LACTATED RINGERS 1,000 ML IV SCH ×2 (15:17→15:44)
[2018-09-07] MEDS: KETOROLAC 30 MG/ML VIAL IVP SCH ×2 (15:17→21:36)
[2018-09-07] MEDS: oxyCODONE 5 MG TABLET PO PRN ×3 (15:43→22:38)
[2018-09-07] MEDS: SODIUM CHLORIDE FLUSH 0.9% 10 ML SYRINGE IVP SCH (16:08)
[2018-09-07] MEDS: hydrOXYzine PAMOATE 25 MG CAPSULE PO PRN (17:28)
[2018-09-07] MEDS ORDERED: QUEtiapine 100 MG TABLET PO SCH (21:00)
--- NOTE | 2018-09-07 21:22 | OPERATIVE REPORT ---
DATE OF SERVICE: 09/07/2018 Physician: Yelitza Patterson MD PREOPERATIVE DIAGNOSES 1. Chronic pelvic pain. 2. Abnormal uterine bleeding. POSTOPERATIVE DIAGNOSES 1. Chronic pelvic pain. 2. Abnormal uterine bleeding. PROCEDURES: Laparoscopic left salpingectomy and lysis of adhesions, followed by abdominal supracervical hysterectomy and right salpingectomy. SURGEON: Yelitza Patterson MD BRUSHER AND SHEARER: Kolby Meier MD ANESTHESIA: General. ESTIMATED BLOOD LOSS: 200 mL IV FLUIDS: 1900 mL. URINE OUTPUT: 250 mL, clear. COUNTS: Correct x2. COMPLICATIONS: None apparent. DISPOSITION: Stable to recovery room. PROPHYLAXIS: SCDs and ELIANA hose to bilateral lower extremities. Ancef 2 grams prior to start of the case. SPECIMENS: Uterus and bilateral fallopian tubes sent to pathology. FINDINGS 1. The patient had a curtain of omental adhesions against her anterior abdominal wall, throughout the entire anterior and lateral abdominal and pelvic peritoneum. This obstructed visualization of the pelvis. 2. Normal-appearing uterus and ovaries. 3. Fallopian tubes interrupted status post tubal ligation. She also had bilateral Filshie clips identified on each fallopian tube. 4. Dense adhesions between the bladder and the lower uterine segment and cervix. COUNSELING: See H and P for counseling details. In brief, the patient declined other methods other than the hysterectomy for treatment of her pain and bleeding. She had 4 prior sections and she was counseled that the surgical approach would depend on her anatomy. We hoped for a laparoscopic- assisted vaginal hysterectomy, but she was counseled that she might require an abdominal approach or a supracervical approach depending on her anatomy. DESCRIPTION OF PROCEDURE: The patient was brought to the operating room, and she was induced with general anesthesia. She was placed in low lithotomy in [facility]. Bimanual examination revealed an axial uterus. She was prepped and draped in the usual sterile fashion. Speculum was placed and a single-tooth tenaculum was applied to the anterior lip of the cervix. The cervix was easily dilated to 5 mm. A large VCare uterine manipulator was inserted into the uterine cavity. The balloon was inflated. The tenaculum was removed and the cups of the VCare were applied flush to the cervix. The speculum was removed. A Bryson catheter was placed. I changed my gloves. All laparoscopic incisions were numbed with local prior to incising. All incisions were done with an 11 blade. All the incisions were 5 mm. Vertical incision was made in the upper umbilicus, in the area of a prior scar. The abdominal tissue was tented upward and Visiport was inserted directly into the abdominal cavity without difficulties. The pneumoperitoneum was created with 15 mmHg of CO2. The omental blanketing of the anterior abdominal wall was noted. The liver and stomach could not be visualized because of the omentum blocking the view. The uterus was visualized, as were the fallopian tubes and ovaries. A dense bladder adhesion was also noted. Two 5 mm trocars were placed approximately 2 cm inferior to and 12 cm lateral to the umbilicus on both sides. Both of the trocars had to be inserted through the peritoneum as well as the omental blanket. The laparoscopic hysterectomy was commenced. All dissection was performed with the LigaSure. The fimbriated portion of the left fallopian tube was grasped and elevated towards the patient's head. The fallopian tube was divided from the mesosalpinx and then was brought through the trocar. The round ligament on the left side was transected. The utero-ovarian ligament on the left side was transected. The anterior leaf of the broad ligament was dissected down to the level of the bladder. The posterior peritoneum was skeletonized slightly. The same procedure was initiated on the contralateral side. Unfortunately, on this side, it was much more difficult due to the position and the omentum. The tubal dissection was started, but it could not be continued due to the omental location and the blocking of the view. An additional trocar was placed to try to facilitate dissection of the omentum off of the anterior abdominal wall. Success was made in dissecting the omentum for the anterior abdominal wall using the LigaSure, especially in the patient's right side lateral to her umbilicus. However, it was clear that it would take a lot of time to dissect off the rest of the omentum, and this would dramatically increase her operative time and therefore operative risk. Also, the feasibility of performing the hysterectomy laparoscopically was uncertain due to the dense bladder adhesions. The decision was made to open a laparotomy incision. All the trocars were removed from her abdomen. Her trocar incisions were closed with interrupted sutures of 4-0 Monocryl. Dermabond was then applied. Laparotomy incision was made with a Pfannenstiel incision in the area of the patient's 4 prior section scars. A scalpel was used to bring the incision down to the fascia, which was nicked in the midline bilaterally. The fascial incision was extended laterally and slightly superiorly with Lay scissors. Kochers were placed on the inferior margin of the fascial margin, and the fascia was bluntly and sharply dissected off of the underlying rectus. The same was performed superiorly. The rectus were slightly splayed. A hemostat was used to elevate the peritoneum and this was incised, knowing that we were going to incise through omentum here as well. The incision was stretched. The uterus was identified and was elevated using Radha clamps applied to the cornua on both sides. The right fallopian tube was divided from the mesosalpinx using the LigaSure. The hysterectomy on the right side was then carried forth as it had been on the left. The hysterectomy was assisted by using the VCare manipulator, which was left in her uterus, and performing upward traction on the VCare occasionally. A double-tooth tenaculum was applied to the fundus of the uterus. The bladder area was inspected and there had been a small plane created by the laparoscopic dissection. This was further developed using Metzenbaum scissors. Blunt dissection succeeded in peeling off the dense adhesions between the bladder and the lower uterine segment. The bladder was brought down to the level of about nursing home down the cervix. Further dissection would have been much more difficult and would have increased her risk for bladder injury. Therefore, I opted to perform a supracervical hysterectomy. The uterus was amputated from the lower uterine segment. Kochers were placed on the remaining stump. The cervical dissection was performed further with a LigaSure skiving off of the specimen to develop the pedicles. The cervix was approximately 6 cm long. Once 3 cm of the cervix had been dissected away from the pelvic peritoneum the cervix was transected with a Bovie. Some bleeders were encountered laterally and these were cauterized with the LigaSure without problems. The peritoneum over the cervix was closed with a running layer of 0 Vicryl. A few areas were oversewn in order to achieve greater hemostasis. At the initial dissection, handheld retractors were used. Following the development of the bladder flap, an O'Daljit-O'Geller retractor was placed. The intestines were packed upward with moist laps. The sidewall retractors were placed and the retractor was opened. The superior blade was placed and good visualization was resulting. There was no pressure of the blade against the sacrum. The abdomen was copiously irrigated multiple times in order to ensure hemostasis. A few small bleeders over the bladder area were gently cauterized. The pedicles were observed and everything appeared to be hemostatic. The O'Daljit-O'Geller retractor was removed. All packing was removed. The rectus muscles were plicated in their scarred thickened midline edges. The fascia was closed with a running layer of 0 Vicryl. The subcutaneous tissues were irrigated and then reapproximated with a running suture of 2-0 Monocryl. The skin was closed with 4-0 Monocryl in a subcuticular fashion. The wound VAC was then applied to the Pfannenstiel incision. The Bryson catheter was removed. The blood and Betadine was washed from her body and she was returned to the supine position prior to waking. TD: 09/07/2018 19:13 PATRICA
[2018-09-07] MEDS: DOCUSATE SODIUM 100 MG CAPSULE PO SCH (21:35)
[2018-09-07] MEDS: buPROPion SR 150 MG TABLET PO SCH (21:35)
[2018-09-07] MEDS: SIMETHICONE CHEW 80 MG TABLET PO SCH (21:35)
[2018-09-07] MEDS: FAMOTIDINE 20 MG TABLET PO SCH (21:35)
[2018-09-07] MEDS: OXcarbazepine 150 MG TABLET PO SCH (21:49)
[2018-09-08] MEDS: hydrOXYzine PAMOATE 25 MG CAPSULE PO PRN ×4 (00:13→17:19)
[2018-09-08] MEDS: SODIUM CHLORIDE FLUSH 0.9% 10 ML SYRINGE IVP SCH ×3 (02:54→15:51)
[2018-09-08] MEDS: KETOROLAC 30 MG/ML VIAL IVP SCH ×2 (02:55→08:19)
[2018-09-08] MEDS: oxyCODONE 5 MG TABLET PO PRN ×4 (02:55→15:42)
[2018-09-08] MEDS: ACETAMINOPHEN 500 MG TABLET PO SCH ×2 (06:04→14:36)
[2018-09-08] MEDS: SIMETHICONE CHEW 80 MG TABLET PO SCH ×2 (06:04→12:20)
[2018-09-08] MEDS ORDERED: NICOTINE 14 MG PATCH TOP ONE (06:19)
[2018-09-08] MEDS: buPROPion SR 150 MG TABLET PO SCH (08:13)
[2018-09-08] MEDS: FAMOTIDINE 20 MG TABLET PO SCH (08:14)
[2018-09-08] MEDS: DOCUSATE SODIUM 100 MG CAPSULE PO SCH (08:14)
[2018-09-08] MEDS ORDERED: NICOTINE 14 MG PATCH TOP SCH (09:00)
[2018-09-08] MEDS ORDERED: cloNIDine 0.1 MG TABLET PO SCH (09:00)
[2018-09-08] MEDS ORDERED: CITALOPRAM HYDROBROMIDE 20 MG TABLET PO SCH (09:00)
[2018-09-08] MEDS: OXcarbazepine 150 MG TABLET PO SCH (09:04)
--- NOTE | 2018-09-08 09:19 | PROVIDER PROGRESS NOTE ---
Subjective - Subjective Subjective: /10 pain at rest, anxious, 2 panic attacks. Moving around ok. Urination is wonky, feels like she empties and stops, then has to valsalva and reposition to get more out, unsure if emptying completely or not. Scant VB. Eating OK. O: AVSS Alert, sitting in chair, appears sleepy, NAD Abd soft, appropriately tender, non-distended LSC incisions c/d/i without erythema Laparotomy incision covered with vac without surrounding erythema A/P: 38yo POD #1 s/p abd supracervical hyst, bilateral salpigectomy, preceded by LSC THANG. Pt with longstanding anx/bipolar/PTSD/panic. Hx of opioid misuse. --Add clonidine to address the panic component --Bladder scan to check to see if she is emptying or not --Reviewed discharge criteria, pt may want to go home later today, will depend on bladder. Objective - Vital Signs/Intake & Output Vital Signs: Vital Signs x48h Temp Pulse Resp BP Pulse Ox 09/08/18 07:53 98.1 F 82 20 107/63 98 Intake & Output: Intake & Output 09/05/18 09/06/18 09/07/18 09/08/18 23:59 23:59 23:59 23:59 Intake Total 4900 690 Output Total 950 1975 Balance 3950 -1285 - Lab Results Other Labs: Lab Results x24hrs 09/07/18 Range/Units 08:03 Blood Type O POSITIVE Antibody Screen NEGATIVE
[2018-09-08 15:44] VITALS: BP 108/65
--- NOTE | 2018-09-08 16:54 | Discharge Plan ---
Discharge Plan Disposition: 01 Home, Self Care Condition: Good Diet: Regular Activity Restrictions: pelvic rest and no lifting more than 10 lbs Shower Restrictions: Yes (do not let vacuum machine get wet) Driving Restrictions: Yes (not while on narcotics) Instruction Topics: Docusate capsules, Naproxen Sumatriptan tablets, Oxycodone tablets or capsules, Constipation, Closure Wound Vacuum Assisted Additional Instructions or Follow Up instructions: See Yesenia's written instructions No Smoking: If you smoke, Please STOP! Call for help. Follow-up with: Yelitza Patterson MD [Provider Admit Priv/Credential] - 1 Week
--- NOTE | 2018-09-08 18:12 | DISCHARGE SUMMARY ---
Physician: Yelitza Patterson MD DATE OF ADMISSION: 09/07/2018 DATE OF DISCHARGE: 09/08/2018 ADMISSION DIAGNOSES 1. Chronic pelvic pain. 2. Abnormal uterine bleeding. DISCHARGE DIAGNOSES 1. Chronic pelvic pain. 2. Abnormal uterine bleeding. OPERATIONS AND PROCEDURES: On 09/08/2018, a supracervical abdominal hysterectomy, bilateral salping ectomy and laparoscopic lysis of adhesions. HOSPITAL COURSE: Patient was admitted for surgical treatment of her chronic pelvic pain and abnormal periods. She has had 4 prior sections and she was aware that her operative approach would depend on her anatomy. Laparoscopic attempted hysterectomy failed due to the patient's dense adhesio ns between bladder and lower uterine segment. She also had a curtain of omentum surrounding her enti re abdominal wall that was obstructing the view of her pelvis. Postoperatively, she did very well. She had panic attacks that are common for her. Her pain was wel l controlled. She was eating, ambulating and urinating without difficulties. POSTOPERATIVE EXAM VITAL SIGNS: She is afebrile with normal vital signs. GENERAL: She is alert and smiling and in no apparent distress. ABDOMEN: Soft, appropriately tender, nondistended. Incisions clean, dry and intact without erythema or induration on the laparoscopic incisions. The laparotomy incision was covered with a wound VAC a nd there was no surrounding erythema. EXTREMITIES: Lower extremities were without abnormality. DISCHARGE DISPOSITION: Home. CONDITION: Good. FOLLOWUP: In [address] Patterson. INSTRUCTIONS: See patient's written instructions. Routine postoperative instructions were given. T he patient is aware that her cervix is in situ and Paps are still recommended. DISCHARGE MEDICATIONS 1. Resume home medications. 2. Oxycodone 5 mg, number 20, no refills. 3. Naproxen 220 mg p.o. b.i.d. p.r.n. pain. 4. Colace p.r.n. to soften stool. TD: 09/08/2018 17:05
== END 2018-09-08 17:26 | disposition home or self-care (01) | DRG 743 ==
LOC: SDS 07:40 → MS2 14:22
PROVIDERS: ADMIT Obstetrics & Gynecology; ATTEND Obstetrics & Gynecology
PROC: 0UT50ZZ Resection of Right Fallopian Tube, Open Approach (ICD-10-PCS; 2018-09-07)
PROC: 0UT64ZZ Resection of Left Fallopian Tube, Percutaneous Endoscopic Approach (ICD-10-PCS; 2018-09-07)
PROC: 0DNW4ZZ Release Peritoneum, Percutaneous Endoscopic Approach (ICD-10-PCS; 2018-09-07)
PROC: 0TNB4ZZ Release Bladder, Percutaneous Endoscopic Approach (ICD-10-PCS; 2018-09-07)
PROC: 0UT90ZZ Resection of Uterus, Open Approach (ICD-10-PCS; principal; 2018-09-07 08:45)
DX: D25.1 Intramural leiomyoma of uterus (principal); N88.8 Other specified noninflammatory disorders of cervix uteri; N99.4 Postprocedural pelvic peritoneal adhesions; N32.89 Other specified disorders of bladder; F41.0 Panic disorder [episodic paroxysmal anxiety]; F17.210 Nicotine dependence, cigarettes, uncomplicated; F31.9 Bipolar disorder, unspecified; F43.10 Post-traumatic stress disorder, unspecified; Z72.89 Other problems related to lifestyle
CPT/HCPCS: 36415; 86850; 86900; 86901; A9270; J0131; J0690; J1170; J2060; J7120; J8499

== ENCOUNTER 2018-09-11 11:13 | Emergency (ER) | payer MEDICAID ==
[2018-09-11 13:24] LABS: BASOPHILS % (AUTO) 0.3 %; EOSINOPHILS # (AUTO) 0.2 10^3/uL (0.0-0.7); EOSINOPHILS % (AUTO) 3.5 %; HGB - HEMOGLOBIN 9.5 g/dL (12.0-16.0); LYMPHOCYTES # (AUTO) 1.2 10^3/uL (1.5-3.5); LYMPHOCYTES % (AUTO) 17.8 %; MEAN CORPUSCULAR HEMOGLOBIN 24.3 pg (27.0-31.0); MEAN CORPUSCULAR HGB CONC 32.2 g/dL (32.0-36.0); MEAN CORPUSCULAR VOLUME 75.4 fL (81.0-99.0); MEAN PLATELET VOLUME 7.7 fL (7.9-10.8); MONOCYTES # (AUTO) 0.4 10^3/uL (0.0-1.0); NEUTROPHILS # (AUTO) 4.9 10^3/uL (1.5-6.6); NEUTROPHILS % (AUTO) 72.4 %; PLT - PLATELET COUNT 316 10^3/uL (130-450); RED BLOOD COUNT 3.89 10^6/uL (4.20-5.40); RED CELL DISTRIBUTION WIDTH 19.9 % (12.0-15.0); WHITE BLOOD COUNT 6.8 x10^3/uL (4.8-10.8)
[2018-09-11 13:39] LABS: ALBUMIN 3.2 g/dL (3.2-5.5); BILIRUBIN,TOTAL 0.3 mg/dL (0.2-1.0); CALCIUM 8.5 mg/dL (8.5-10.3); CREATININE 0.6 mg/dL (0.4-1.0); TOTAL PROTEIN 6.5 g/dL (6.7-8.2)
[2018-09-11] MEDS ORDERED: oxyCODONE 5 MG TABLET PO STA (13:42)
--- NOTE | 2018-09-11 13:46 | ED Physician Documentation ---
PD HPI ABD PAIN - Stated complaint Stated Complaint: ABD PX/ S/P SURGERY - Chief complaint Chief Complaint: Abd Pain - History obtained from History obtained from: Patient - History of Present Illness Timing - onset: Other (This is a 38-year-old woman who is postop day 5 from an attempted laparoscopic converted to open hysterectomy. She ran out of her pain medications a couple of days ago and her pain is uncontrolled. She is constipated having had only one small bowel movement since the surgery. When she urinates she denies any dysuria but she has feels like she has incomplete emptying. There is no vaginal cuff discharge, nothing coming into her wound VAC. She denies fevers.) Review of Systems Constitutional: reports: Sweats. denies: Fever, Chills Cardiac: denies: Chest pain / pressure, Palpitations Respiratory: denies: Dyspnea, Cough GI: reports: Abdominal Pain, Constipation. denies: Nausea, Vomiting, Diarrhea, Hematemesis, Bloody / black stool : reports: Frequency. 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, Tubal ligation, Breast implants, Other - Present Medications Home Medications: Ambulatory Orders Medication Instructions Recorded Confirmed Citalopram [CeleXA] 20 mg PO DAILY 08/23/16 09/11/18 QUEtiapine [SEROquel] 250 mg PO QPM 08/23/16 09/11/18 Oxcarbazepine [Trileptal] 600 mg PO BID 08/29/18 09/11/18 buPROPion [Wellbutrin Sr] 150 mg PO DAILY 08/29/18 09/11/18 Oxycodone HCl/Acetaminophen 1 - 2 each PO Q6H PRN #10 tablet 09/11/18 [Percocet 5-325 mg Tablet] Polyethylene Glycol 3350 [Miralax] 17 gm PO DAILY PRN #1 bottle 09/11/18 - Allergies Allergies/Adverse Reactions: Allergies Allergy/AdvReac Type Severity Reaction Status Date / Time hydrocodone bitartrate * Allergy Itching Verified 09/11/18 14:01 [From Vicodin] - Social History Does the pt smoke?: Yes Smoking Status: Current every day smoker Does the pt drink ETOH?: No Does the pt have substance abuse?: No - Family History Family history: reports: Non contributory - Immunizations Immunizations are current?: Yes - POLST Patient has POLST: No PD ED PE NORMAL - Vitals Vital signs reviewed: Yes - General General: Alert and oriented X 3, No acute distress - Neck Neck: Supple, no meningeal sign, No bony TTP - Cardiac Cardiac: RRR, No murmur - Respiratory Respiratory: No respiratory distress, Clear bilaterally - Abdomen Abdomen: Other (Laparoscopic incisions are clean dry and intact. She also has a Pfannenstiel incision with a wound VAC in place without obvious abnormality. The wound VAC was not removed. She has modest lower abdominal tenderness without surgical signs.) - Back Back: No CVA TTP, No spinal TTP - Derm Derm: Normal color, Warm and dry - Extremities Extremities: No edema, No calf tenderness / cord - Neuro Neuro: Alert and oriented X 3, Normal speech - Psych Psych: Normal mood, Normal affect Results - Vitals Vitals: Vital Signs - 24 hr 09/11/18 09/11/18 12:15 13:51 Temperature 37.1 C 37.1 C Heart Rate 102 H 88 Respiratory 18 18 Rate Blood Pressure 124/72 114/73 O2 Saturation 98 99 Oxygen O2 Source Room air - Labs Labs: Laboratory Tests 09/11/18 09/11/18 09/11/18 13:03 13:03 14:14 WBC 6.8 RBC 3.89 L Hgb 9.5 L Hct 29.4 L MCV 75.4 L MCH 24.3 L MCHC 32.2 RDW 19.9 H Plt Count 316 MPV 7.7 L Neut # (Auto) 4.9 Lymph # (Auto) 1.2 L [place] # (Auto) 0.4 Eos # (Auto) 0.2 Baso # (Auto) 0.0 Absolute Nucleated RBC 0.00 Nucleated RBC % 0.0 Sodium 135 Potassium 4.0 Chloride 103 Carbon Dioxide 25 Anion Gap 7.0 BUN 6 Creatinine 0.6 Estimated GFR (MDRD) 111 Glucose 116 H Calcium 8.5 Total Bilirubin 0.3 AST 26 ALT 31 Alkaline Phosphatase 84 Total Protein 6.5 L Albumin 3.2 Globulin 3.3 Albumin/Globulin Ratio 1.0 Lipase 25 Urine Color YELLOW Urine Clarity CLEAR Urine pH 7.0 Ur Specific [place] 1.010 Urine Protein NEGATIVE Urine Glucose (UA) NEGATIVE Urine Ketones NEGATIVE Urine Occult Blood NEGATIVE Urine Nitrite NEGATIVE Urine Bilirubin NEGATIVE Urine Urobilinogen 0.2 (NORMAL) Ur Leukocyte Esterase NEGATIVE Ur Microscopic Review NOT INDICATED Urine Culture Comments NOT INDICATED PD MEDICAL DECISION MAKING - ED course ED course: This is a 38-year-old woman who is status post hysterectomy with uncontrolled postoperative pain. Her exam is relatively benign as are her labs noting a modest drop in her H&H. Urine is negative. She also has constipation. Case was discussed with her surgeon, Dr. Patterson who would like her to rapidly come off of narcotics. Note there are some red flags in the chart for narcotic use including a history of overdoses and alcoholism. Departure - Departure Disposition: 01 Home, Self Care Clinical Impression: Post-operative pain Condition: Stable Record reviewed to determine appropriate education?: Yes Instructions: Hysterectomy Having Prescriptions: Oxycodone HCl/Acetaminophen [Percocet 5-325 mg Tablet] 1 - 2 each PO Q6H PRN #10 tablet PRN Reason: pain Polyethylene Glycol 3350 [Miralax] 17 gm PO DAILY PRN #1 bottle PRN Reason: Constipation Comments: Follow-up with the surgeon on Wednesday as scheduled. Return for new worsening symptoms especially fevers. Do not drink or drive while taking narcotic pain medication. Note that many narcotic pain relievers also contain Tylenol/acetaminophen. Please ensure that your total dose of acetaminophen from all sources does not exceed 3 g (3000 mg) per day. You may get constipated while on this medication. Take a stool softener such as Colace twice a day while you are on it. Also add an auek-jae-onageoc laxative such as senna or MiraLAX on any day that you do not have a bowel movement. If you received a narcotic pain medication or sedative while in the emergency department, do not drive for the next 24 hours.
[2018-09-11 14:24] LABS: BILIRUBIN,URINE NEGATIVE (NEGATIVE); GLUCOSE, URINE (UA) NEGATIVE (NEGATIVE); KETONES,URINE (UA) NEGATIVE (NEGATIVE); LEUKOCYTE ESTERASE, URINE NEGATIVE (NEGATIVE); NITRITE,URINE NEGATIVE (NEGATIVE); OCCULT BLOOD,URINE NEGATIVE (NEGATIVE); PROTEIN,URINE NEGATIVE (NEGATIVE); UROBILINOGEN,URINE 0.2 (NORMAL) E.U./dL (NORMAL)
[2018-09-11 14:26] LABS: CLARITY,URINE CLEAR (CLEAR)
[2018-09-11 14:44] VITALS: BP 140/83
== END 2018-09-11 14:55 | disposition home or self-care (01) ==
LOC: ED 11:13
DX: G89.18 Other acute postprocedural pain (principal); F17.200 Nicotine dependence, unspecified, uncomplicated
CPT/HCPCS: 36415; 80053; 81003; 83690; 85025; 99283; A9270; 81001; 87086

== ENCOUNTER 2019-10-25 14:27 | Outpatient (CLI) | payer MEDICAID ==
[2019-10-25 17:48] LABS: BASOPHILS % (AUTO) 0.3 %; EOSINOPHILS % (AUTO) 0.6 %; HGB - HEMOGLOBIN 14.8 g/dL (12.0-16.0); LYMPHOCYTES # (AUTO) 1.9 10^3/uL (1.5-3.5); LYMPHOCYTES % (AUTO) 25.6 %; MEAN CORPUSCULAR HEMOGLOBIN 29.2 pg (27.0-31.0); MEAN CORPUSCULAR VOLUME 88.6 fL (81.0-99.0); MONOCYTES # (AUTO) 0.4 10^3/uL (0.0-1.0); MONOCYTES % (AUTO) 5.4 %; NEUTROPHILS # (AUTO) 4.9 10^3/uL (1.5-6.6); NEUTROPHILS % (AUTO) 67.8 %; PLT - PLATELET COUNT 248 10^3/uL (130-450); RED BLOOD COUNT 5.07 10^6/uL (4.20-5.40); RED CELL DISTRIBUTION WIDTH 14.7 % (12.0-15.0); WHITE BLOOD COUNT 7.3 x10^3/uL (4.8-10.8)
[2019-10-25 18:18] LABS: ALBUMIN 3.7 g/dL (3.2-5.5); ALBUMIN/GLOBULIN RATIO 1.1 (1.0-2.2); BILIRUBIN,TOTAL 0.5 mg/dL (0.2-1.0); CALCIUM 8.6 mg/dL (8.5-10.3); CREATININE 0.6 mg/dL (0.4-1.0)
[2019-10-25 18:25] LABS: FERRITIN 26.2 ng/mL (11.0-306.8)
[2019-10-25 18:30] LABS: FOLATE 9.27 ng/mL (5.90 - >24.8)
== END 2019-10-25 23:59 | disposition home or self-care (01) ==
LOC: LAB.WCP 14:27
PROVIDERS: ATTEND Family Medicine
DX: K76.0 Fatty (change of) liver, not elsewhere classified (principal); D50.9 Iron deficiency anemia, unspecified; E53.8 Deficiency of other specified B group vitamins
CPT/HCPCS: 36415; 80053; 82607; 82728; 82746; 83540; 84466; 85025

== ENCOUNTER 2020-03-28 11:21 | Emergency (ER) | payer MEDICAID ==
--- NOTE | 2020-03-28 11:51 | ED Physician Documentation ---
History of Present Illness - Stated complaint Stated Complaint: SOA - Chief complaint Chief Complaint: Resp - Additonal information Additional information: 40-year-old female presents the emergency department with chief concern that she has COVID-19. She reports that for the last 2 days she has had a dry cough loss of taste and smell. She reports that last night she felt her breathing was more labored than normal. When she presented to the emergency department she was crying panicked and very tearful. She reports that her was exposed to somebody with COVID-19 through work but she tested negative. Patient reports to me that she has severe anxiety She denies any fevers bloody sputum. Does not have a history of asthma. Here in the emergency department she is saturating well 96 to 100%. However she is panicking and quite tachypneic. A fair amount of time was spent in the room trying to calm the patient. Review of Systems Constitutional: reports: Reviewed and negative Eyes: reports: Reviewed and negative Ears: reports: Reviewed and negative Nose: reports: Other (loss of taste and smell) Throat: reports: Reviewed and negative Cardiac: reports: Reviewed and negative Respiratory: reports: Cough. 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, Tubal ligation, Breast implants, Other - Present Medications Home Medications: Ambulatory Orders Medication Instructions Recorded Confirmed Citalopram [CeleXA] 20 mg PO DAILY 08/23/16 09/11/18 QUEtiapine [SEROquel] 250 mg PO QPM 08/23/16 09/11/18 OXcarbazepine [Trileptal] 600 mg PO BID 08/29/18 09/11/18 buPROPion [Wellbutrin Sr] 150 mg PO DAILY 08/29/18 09/11/18 Ibuprofen [Motrin] 800 mg PO Q8H PRN #30 tablet 09/11/18 Oxycodone HCl/Acetaminophen 1 - 2 each PO Q6H PRN #10 tablet 09/11/18 [Percocet 5-325 mg Tablet] polyethylene glycoL 3350 [Miralax] 17 gm PO DAILY PRN #1 bottle 09/11/18 LORazepam [Lorazepam] 1 mg PO Q6HR PRN #8 tablet 03/28/20 - Allergies Allergies/Adverse Reactions: Allergies Allergy/AdvReac Type Severity Reaction Status Date / Time hydrocodone bitartrate * Allergy Itching Verified 03/28/20 11:30 [From Vicodin] - Social History Does the pt smoke?: Yes Smoking Status: Current every day smoker Does the pt drink ETOH?: No Does the pt have substance abuse?: No - Immunizations Immunizations are current?: Yes - POLST Patient has POLST: No PD ED PE EXPANDED - General General: Alert, Anxious (panic attack on presentation) - HEENT HEENT: PERRL, EOMI - Neck Neck: Supple w/out meningeal sx. No: Adenopathy - Cardiac Cardiac: Tachy, Radial strong equal, Pedal strong equal, Cap refill < 2 sec - Respiratory Respiratory: Clear to ausultation cresencio, Other (clear unrestricted respiration. initally tachypneic on presentation, respirations slowed after time and were unremarkable) - Abdomen Abdomen: Normal Bowel sounds. No: Tender to palpation - Neuro Neuro: Alert and Oriented X 3 - GCS Eye Opening: Spontaneous Motor: Obeys Commands Verbal: Oriented Total: 15 Results - Vitals Vitals: Vital Signs - 24 hr 03/28/20 11:28 Temperature 36.8 C Heart Rate 123 H Respiratory 24 Rate Blood Pressure 111/75 O2 Saturation 95 Oxygen O2 Source Room air PD MEDICAL DECISION MAKING - ED course Complexity details: considered differential, d/w patient ED course: 40-year-old female presents the emergency department with concerns that she has COVID-19 as she has constellation of symptoms of loss of taste smell and a dry cough. When she presented she was having an anxiety attack. After bit of time in the room she was able to calm and slow her respirations. She had no hypoxia and cardiopulmonary auscultation was unremarkable. COVID-19 screening is pending. Patient does report to me a significant history of anxiety. We discussed routine care measures and to quarantine for COVID-19 symptoms. In order to help her cope at home I will prescribe a very limited number of Ativan. Return precautions for concerns of labored breathing in the absence of panic were discussed Departure - Departure Disposition: 01 Home, Self Care Clinical Impression: Encounter for screening laboratory testing for COVID-19 virus, Panic attack as reaction to stress, Cough Condition: Stable Record reviewed to determine appropriate education?: Yes Prescriptions: LORazepam [Lorazepam] 1 mg PO Q6HR PRN #8 tablet PRN Reason: Anxiety Comments: Elif we are screening you today for COVID-19. Your test results will not be available for 48 to 72 hours. It is important that you go home and remain in quarantine until your results are known. I have a written a prescription for a limited amount of Ativan to help you with your anxiety. It is important to know that most people that develop COVID-19 will have mild illness. The best treatment is fluids and rest. If at any point you feel that you cannot catch your breath well, you have fevers, bloody sputum then please return to the emergency department.
[2020-03-28 13:39] VITALS: BP 142/77
== END 2020-03-28 13:10 | disposition home or self-care (01) ==
LOC: ED 11:21
DX: F43.0 Acute stress reaction (principal); F17.200 Nicotine dependence, unspecified, uncomplicated; Z20.828 Contact with and (suspected) exposure to other viral communicable diseases
CPT/HCPCS: 99283; 99284

== ENCOUNTER 2020-04-01 07:00 | Outpatient (CLI) | payer MEDICAID | END 2020-04-01 23:59 | disposition home or self-care (01) | LOC: LAB.R 07:00 | PROVIDERS: ATTEND Internal Medicine | DX: R11.2 Nausea with vomiting, unspecified (principal) | CPT/HCPCS: 87275; 87276 ==